=== PATIENT | male | born 1950 | race Caucasian/White ===

== ENCOUNTER 2023-12-04 14:38 | Emergency (ER) | payer OTHER, MEDICARE ==
[2023-12-04] MEDS ORDERED: Sodium Chloride 0.9% 10 ML Syringe FLUSH PRN (17:45)
[2023-12-04] MEDS ORDERED: Sodium Chloride 0.9% 10 ML Syringe FLUSH ONE (17:52)
[2023-12-04] MEDS ORDERED: Sodium Chloride 0.9% 100 ML IV SCH (18:00)
[2023-12-04] MEDS ORDERED: Iopamidol 612 MG/ML 100 ML Bottle IV SCH (18:00)
== END 2023-12-04 19:31 | disposition left against medical advice (07) ==
LOC: JP.ED 14:38
DX: Z04.1 Encounter for examination and observation following transport accident (principal); I10 Essential (primary) hypertension; E78.00 Pure hypercholesterolemia, unspecified; Z79.899 Other long term (current) drug therapy
CPT/HCPCS: 70450; 71250; 74176; 99284